=== PATIENT | male | born 1940 | race Caucasian/White ===

== ENCOUNTER → 2016-12-11 | Outpatient (CLI) | payer MEDICARE | LOC: EMI 09:00 | DX: C61 Malignant neoplasm of prostate (principal); D47.3 Essential (hemorrhagic) thrombocythemia; N43.3 Hydrocele, unspecified | CPT/HCPCS: 72197; A9577; J7050 ==

== ENCOUNTER 2021-07-20 17:18 | Inpatient (IN) | payer MEDICARE, OTHER ==
[~2021-07-20] VITALS: Ht 172.7 cm; Wt 72.1 kg
[2021-07-20 19:21] LABS: HEMOGLOBIN 10.5 gm/dl (14.0-17.5); RED BLOOD COUNT 3.54 M/UL (4.20-5.50); WHITE BLOOD COUNT 13.1 K/UL (4.5-11.0)
[2021-07-20] MEDS ORDERED: LISINOPRIL20 MG PO (22:33)
[2021-07-20] MEDS ORDERED: ARICEPT10 MG PO (22:33)
[2021-07-20] MEDS ORDERED: DONEPEZIL HCL10 MG PO (22:34)
[2021-07-20] MEDS ORDERED: ASPIRIN81 MG PO (22:34)
[2021-07-21 05:12] LABS: RED BLOOD COUNT 3.32 M/UL (4.20-5.50)
[2021-07-22 02:46] LABS: HEMOGLOBIN 9.5 gm/dl (14.0-17.5); RED BLOOD COUNT 3.11 M/UL (4.20-5.50); WHITE BLOOD COUNT 12.2 K/UL (4.5-11.0)
[2021-07-23 06:19] LABS: HEMOGLOBIN 9.7 gm/dl (14.0-17.5); RED BLOOD COUNT 3.18 M/UL (4.20-5.50); WHITE BLOOD COUNT 10.7 K/UL (4.5-11.0)
[2021-07-23] MEDS ORDERED: CRESTOR 10 MG T10 MG PO (11:55)
[2021-07-23] MEDS ORDERED: CLOPIDOGREL75 MG PO (11:55)
[2021-07-23] MEDS ORDERED: AMLODIPINE BESYL5 MG PO (11:55)
[2021-07-23] MEDS ORDERED: LOPRESSOR 25 MG25 MG PO ×2 (11:55→12:18)
[2021-07-23] MEDS ORDERED: ASPIRIN EC81 MG PO (12:18)
[2021-07-23] MEDS ORDERED: NITROSTAT0.4 MG SL (12:21)
== END 2021-07-23 13:13 | disposition home or self-care (01) | DRG 281 ==
LOC: ER1 17:18 → CCU 20:14 → CDU 20:14 → CCU 22:41 → PROG CARE 07-22 08:48
PROVIDERS: Emergency Medicine; Internal Medicine; ADMIT Internal Medicine
PROC: B24BZZ4 Ultrasonography of Heart with Aorta, Transesophageal (ICD-10-PCS; principal; 2021-07-21)
PROC: 4A023N7 Measurement of Cardiac Sampling and Pressure, Left Heart, Percutaneous Approach (ICD-10-PCS; 2021-07-21)
PROC: B2111ZZ Fluoroscopy of Multiple Coronary Arteries using Low Osmolar Contrast (ICD-10-PCS; 2021-07-21)
PROC: B2161ZZ Fluoroscopy of Right and Left Heart using Low Osmolar Contrast (ICD-10-PCS; 2021-07-21)
DX: I21.4 Non-ST elevation (NSTEMI) myocardial infarction (principal); I50.22 Chronic systolic (congestive) heart failure; N17.9 Acute kidney failure, unspecified; I47.1 Supraventricular tachycardia; Z20.822 Contact with and (suspected) exposure to COVID-19; I25.10 Atherosclerotic heart disease of native coronary artery without angina pectoris; I11.0 Hypertensive heart disease with heart failure; E78.5 Hyperlipidemia, unspecified; F03.90 Unspecified dementia, unspecified severity, without behavioral disturbance, psychotic disturbance, mood disturbance, and anxiety; I25.5 Ischemic cardiomyopathy; E86.0 Dehydration; Z95.1 Presence of aortocoronary bypass graft; Z79.01 Long term (current) use of anticoagulants; Z79.82 Long term (current) use of aspirin; Z90.49 Acquired absence of other specified parts of digestive tract; Z88.0 Allergy status to penicillin; Z82.49 Family history of ischemic heart disease and other diseases of the circulatory system
CPT/HCPCS: ECHO; 36415; 71045; 80053; 80061; 82550; 82553; 83690; 83735; 83874; 83880; 84100; 84439; 84443; 84484; 85025; 85027; 85610; 85730; 87040; 93005; 93306; 99152; 99153; 99285; C1769; C1887; C1894; J1630; J1644; J2250; J3010; J3486; J7030; Q9965; U0002

== ENCOUNTER → 2021-08-22 | Outpatient (CLI) | payer MEDICARE, OTHER ==
[~2021-08-22] MED LIST: AMLODIPINE BESYL5 MG PO; ARICEPT10 MG PO; ASPIRIN EC81 MG PO; ASPIRIN81 MG PO; CLOPIDOGREL75 MG PO; CRESTOR 10 MG T10 MG PO; DONEPEZIL HCL10 MG PO; LISINOPRIL20 MG PO; LOPRESSOR 25 MG25 MG PO; NITROSTAT0.4 MG SL
== END ==
LOC: KOH-I 11:15
DX: Z87.891 Personal history of nicotine dependence (principal); R91.1 Solitary pulmonary nodule
CPT/HCPCS: 71271

== ENCOUNTER 2021-11-14 13:37 | Inpatient (IN) | payer MEDICARE, OTHER ==
[~2021-11-14] VITALS: Ht 172.7 cm; Wt 78.6 kg
[2021-11-14 14:17] LABS: RED BLOOD COUNT 3.86 M/UL (4.20-5.50); WHITE BLOOD COUNT 13.3 K/UL (4.5-11.0)
[2021-11-15 04:58] LABS: HEMOGLOBIN 10.6 gm/dl (14.0-17.5); RED BLOOD COUNT 3.81 M/UL (4.20-5.50); WHITE BLOOD COUNT 11.8 K/UL (4.5-11.0)
--- NOTE | 2021-11-15 10:59 | NUR ---
RN HAD NOTICED EARLIER THAT PATIENT'S HEART RATE HAD BEEN BETWEEN 128 AND 148. PATIENT HAD BEEN WALKING SELF TO HIS BATHROOM AND WINDOW. RN WAS AWARE THAT PATIENT HAD A HISTORY OF AFIB PER ER NURSE REPORT THIS AM. TELEMETRY NOTIFIED RN THAT PATIENT HAD A PECULIAR RHYTHM AND ASKED RN IF PATIENT HAD A DEFIBRILLATOR OR AICD. RN WAS NOT AWARE SO SHE ASKED THE PATIENT AND HE AND HIS BOTH STATED HE DID NOT. RN NOTIFIED TELEMETRY AND TOLD THEM TO SEND UP THE TELEMETRY STRIP. RN NOTED THAT THE PATIENT'S HEART RATE WAS RUNNING BETWEEN 50 AND 60. ER NURSE ALSO NOTIFIED RN THAT PATIENT HAD HISTORY OF BRADYCARDIA. RN CALLED DR. RUIZ AND NOTIFIED HER OF PATIENT'S DRASTIC CHANGE IN RATE. RN REQUESTED A CARDIAC CONSULT AND MD STATED SHE WOULD ASSESS PATIENT AND ORDERED AN EKG. CARDIOLOGY LATER ASSESSED PATIENT AND BEGAN PO MEDICATION. MD THEN DECIDED ON A PCU TRANSFER. RN TRANSFERRED PATIENT TO [facility] AFTER REPORT WAS CALLED. PATIENT DENIES CHEST PAIN AND DISCOMFORT.
[2021-11-15] MEDS ORDERED: CLOPIDOGREL75 MG PO (11:00)
[2021-11-15] MEDS ORDERED: CRESTOR10 MG PO (11:02)
[2021-11-15] MEDS ORDERED: FEXOFENADINE H180 MG PO (11:03)
[2021-11-15] MEDS ORDERED: LISINOPRIL2.5 MG PO (11:03)
[2021-11-15] MEDS ORDERED: PROVENTIL HFA6.7 GM INH (11:04)
[2021-11-15] MEDS ORDERED: ASPIRIN EC81 MG PO (11:05)
[2021-11-15] MEDS ORDERED: AZELASTINE137 MCG/0. (11:06)
[2021-11-15] MEDS ORDERED: FLONASE 0.05% N16 GM (11:06)
[2021-11-15] MEDS ORDERED: METOPROLOL TART25 MG PO (11:07)
[2021-11-15] MEDS ORDERED: NITROGLYCERIN0.4 MG SL (11:07)
[2021-11-15] MEDS ORDERED: VITAMIN D3125 MCG PO (11:08)
[2021-11-15] MEDS ORDERED: IRON325 M1 PO (11:08)
--- NOTE | 2021-11-15 13:34 | NUR ---
REPORT CALLED TO PCU NURSE.
--- NOTE | 2021-11-16 04:08 | NUR ---
PATIENT HAS BEEN COMBATIVE AND NON COMPLIANT WITH MONITOR. MD NOTIFIED TELE ALSO NOTIFIED.
[2021-11-17 08:01] LABS: HEMOGLOBIN 10.5 gm/dl (14.0-17.5); RED BLOOD COUNT 3.81 M/UL (4.20-5.50); WHITE BLOOD COUNT 13.9 K/UL (4.5-11.0)
[2021-11-17] MEDS ORDERED: AMIODARONE HCL200 MG PO ×2 (09:28)
[2021-11-17] MEDS ORDERED: LASIX40 MG PO (10:04)
== END 2021-11-17 10:40 | disposition home or self-care (01) | DRG 226 ==
LOC: ER1 13:37 → MED SURG 4 19:11 → PROG CARE 19:11 → CDU 19:11 → MED SURG 4 11-15 08:59 → PROG CARE 11-15 13:41
PROVIDERS: Internal Medicine; Physician Assistant; ADMIT Internal Medicine
PROC: B24BZZZ Ultrasonography of Heart with Aorta (ICD-10-PCS; principal; 2021-11-15)
PROC: 0JH609Z Insertion of Cardiac Resynchronization Defibrillator Pulse Generator into Chest Subcutaneous Tissue and Fascia, Open Approach (ICD-10-PCS; 2021-11-16)
PROC: 02HL3KZ Insertion of Defibrillator Lead into Left Ventricle, Percutaneous Approach (ICD-10-PCS; 2021-11-16)
DX: I13.0 Hypertensive heart and chronic kidney disease with heart failure and stage 1 through stage 4 chronic kidney disease, or unspecified chronic kidney disease (principal); I50.43 Acute on chronic combined systolic (congestive) and diastolic (congestive) heart failure; I47.1 Supraventricular tachycardia; N17.9 Acute kidney failure, unspecified; F03.90 Unspecified dementia, unspecified severity, without behavioral disturbance, psychotic disturbance, mood disturbance, and anxiety; N18.30 Chronic kidney disease, stage 3 unspecified; H91.90 Unspecified hearing loss, unspecified ear; U07.0 Vaping-related disorder; I49.5 Sick sinus syndrome; R00.1 Bradycardia, unspecified; E78.5 Hyperlipidemia, unspecified; I25.5 Ischemic cardiomyopathy; I25.10 Atherosclerotic heart disease of native coronary artery without angina pectoris; Z95.5 Presence of coronary angioplasty implant and graft; Z98.890 Other specified postprocedural states; Z88.0 Allergy status to penicillin; Z87.891 Personal history of nicotine dependence; Z79.82 Long term (current) use of aspirin; Z79.899 Other long term (current) drug therapy; I25.2 Old myocardial infarction; Z90.89 Acquired absence of other organs
CPT/HCPCS: ECHO; 33225; 33249; 36415; 71045; 80048; 80053; 82550; 82553; 83735; 83880; 84100; 84439; 84443; 84484; 85025; 85027; 93005; 93306; 93641; 96372; 96374; 99152; 99153; 99285; C1769; G0378; J1644; J1940; J2250; J3010; J3370; J7040; J7050; J7070; Q9965

== ENCOUNTER → 2021-11-30 | Outpatient (CLI) | payer MEDICARE, OTHER ==
[~2021-11-30] MED LIST changes: +AMIODARONE HCL200 MG PO; +AZELASTINE137 MCG/0.; +CRESTOR10 MG PO; +FEXOFENADINE H180 MG PO; +FLONASE 0.05% N16 GM; +IRON325 M1 PO; +LASIX40 MG PO; +LISINOPRIL2.5 MG PO; +METOPROLOL TART25 MG PO; +NITROGLYCERIN0.4 MG SL; +PROVENTIL HFA6.7 GM INH; +VITAMIN D3125 MCG PO
== END ==
LOC: KOH-I 13:20
DX: R91.8 Other nonspecific abnormal finding of lung field (principal); J98.11 Atelectasis
CPT/HCPCS: 71250

== ENCOUNTER → 2021-12-03 | Outpatient (CLI) | payer MEDICARE, OTHER | LOC: HEART 5 14:37 | DX: Z01.89 Encounter for other specified special examinations (principal) | CPT/HCPCS: 94060; 94729 ==

== ENCOUNTER → 2022-01-15 | Outpatient (CLI) | payer MEDICARE, OTHER | LOC: HEART 5 09:08 | DX: R06.02 Shortness of breath (principal); Z79.899 Other long term (current) drug therapy | CPT/HCPCS: 94060; 94729 ==

== ENCOUNTER → 2022-01-17 | Outpatient (CLI) | payer MEDICARE, OTHER | LOC: RAD 17:00 | DX: M54.50 Low back pain, unspecified (principal); M25.551 Pain in right hip; M47.816 Spondylosis without myelopathy or radiculopathy, lumbar region; Z91.81 History of falling | CPT/HCPCS: 72100; 73502 ==

== ENCOUNTER 2022-01-18 14:11 | Emergency (ER) | payer MEDICARE, OTHER | END 2022-01-18 19:30 | disposition home or self-care (01) | LOC: ER1 14:11 | DX: S32.591A Other specified fracture of right pubis, initial encounter for closed fracture (principal); I50.9 Heart failure, unspecified; D64.9 Anemia, unspecified; I48.91 Unspecified atrial fibrillation; F17.290 Nicotine dependence, other tobacco product, uncomplicated; Z95.0 Presence of cardiac pacemaker; Z95.1 Presence of aortocoronary bypass graft; Z90.89 Acquired absence of other organs; Z88.0 Allergy status to penicillin; W19.XXXA Unspecified fall, initial encounter; Y92.009 Unspecified place in unspecified non-institutional (private) residence as the place of occurrence of the external cause; Y93.E9 Activity, other interior property and clothing maintenance | CPT/HCPCS: 72192; 99283 ==